=== PATIENT | female | born 1945 | race Caucasian/White ===

== ENCOUNTER 2019-12-03 13:48 | Outpatient (REF) | payer MEDICARE, BC, SELFPAY ==
--- NOTE | 2019-12-03 | MM_ITS ---
EXAMINATION: BONE DENSITOMETRY CLINICAL INDICATION: Other specified disorders of bone density and structure, multiple sites. COMPARISON: Previous BD dated 05/03/2017 and baseline BD dated 08/19/2008. TECHNIQUE: Using a Commissioner DXA System (software version: 13.1) manufactured by [employer], dual-energy x-ray absorptiometry was performed of the lumbar spine and left hip. The images are of good technical quality. Summary results are attached. FINDINGS: AP SPINE L1-L3 (excluding L4): The data of L1-L4 has been changed to exclude the L4 vertebral body, because vertebral curvature and degenerative changes at this level may cause overestimation of lumbar spine density. Current: BMD 1.014 g/cm2, Z-score 0.2, T-score -1.3, osteopenia, 4.7% decrease from previous, 6.5% decrease from baseline (<5% change is not significant). Prior: BMD 1.064 g/cm2. Baseline: BMD 1.084 g/cm2. LEFT FEMUR, NECK: Current: BMD 0.796 g/cm2, Z-score 0.0, T-score -1.7, osteopenia. Prior: BMD 0.876 g/cm2. Baseline: BMD 0.910 g/cm2. LEFT FEMUR, TOTAL: Current: BMD 0.921 g/cm2, Z-score 0.9, T-score -0.7, normal, 8.6% decrease from previous, 5.3% decrease from baseline (<5% change is not significant). Prior: BMD 1.008 g/cm2. Baseline: BMD 0.973 g/cm2. IDENTIFIED RISK FACTORS: History of adult fracture. Hysterectomy. Bilateral oophorectomy. Menopause. HISTORY OF FRACTURE: Forearm. No insufficiency fracture reported. MEDICATIONS: Vitamin D. IMPRESSION: 1. DIAGNOSIS: Osteopenia based on the lowest T-score value of -1.7 in the femoral neck applying World Health Organization criteria. 2. 10-YEAR FRACTURE RISK PREDICTION, FRAX: Major osteoporotic fracture (clinical spine, forearm, hip or shoulder) 17.6%. Hip fracture 3.6%. 3. Treatment Recommendations: NOF guidelines recommend consideration for treatment in postmenopausal women and men age 50 and older presenting with the following: -A hip or vertebral (clinical or morphometric) fracture. -T-score less than or equal to -2.5 at the femoral neck or spine after appropriate evaluation to exclude secondary causes. -Low bone mass at the hip or spine and a 10-year fracture probability by FRAX of greater than or equal to 3% for hip fracture or greater than or equal to 20% for major osteoporotic fracture based on the [place] adapted WHO algorithm. 4. Other Recommendations: All treatment decisions require clinical judgment and consideration of individual patient factors, including patient preferences, comorbidities, previous drug use, risk factors not captured in the FRAX model (e.g. frailty, falls, vitamin D deficiency, increased bone turnover, interval significant decline in bone density) and possible under or overestimation of fracture risk by FRAX. Additional medical evaluation for secondary cause of low bone mineral density may be appropriate. FUTURE SCAN RECOMMENDATION: People with diagnosed cases of osteoporosis or at high risk for fracture should have regular bone mineral density tests. For patients eligible for Medicare, routine testing is allowed once every 2 years. The testing frequency can be increased to one year for patients who have rapidly progressing disease, those who are receiving or discontinuing medical therapy to restore bone mass, or have additional risk factors.
--- NOTE | 2019-12-03 | MM_ITS ---
EXAMINATION: MM SCREENING DIGITAL BREAST TOMOSYNTHESIS, BILATERAL CLINICAL INFORMATION: Screening. Asymptomatic. The lifetime risk of breast cancer based on the Tyrer-Cuzick Model is 8.2%. COMPARISON: Mammography: November 27, 2018 and studies dating back to March 27, 2011 TECHNIQUE: Digital breast tomosynthesis is performed in both the craniocaudal and mediolateral oblique views along with computer-aided detection (CAD). Synthesized 2D images are generated from the tomosynthesis. FINDINGS: The breasts are almost entirely fatty (ACR BI-RADS breast composition Category a). There are no significant masses, abnormal calcifications, or other abnormalities. IMPRESSION: There are no significant changes from prior study. ASSESSMENT: BI-RADS 1: Negative RECOMMENDATION: Routine annual mammography screening. This patient's information was entered into a reminder system with a target due date for their next mammogram.
== END 2019-12-03 13:49 | disposition home or self-care (01) ==
LOC: HO.MAMMO 13:48
PROVIDERS: PCP Internal Medicine; Visit Provider Internal Medicine
DX: Z12.31 Encounter for screening mammogram for malignant neoplasm of breast (principal); M85.89 Other specified disorders of bone density and structure, multiple sites; Z78.0 Asymptomatic menopausal state; Z90.710 Acquired absence of both cervix and uterus; Z90.722 Acquired absence of ovaries, bilateral
CPT/HCPCS: 77063; 77067; 77080

== ENCOUNTER → 2019-12-17 07:37 | Outpatient (BNVA) | payer MEDICARE, BC, SELFPAY | PROVIDERS: PCP Internal Medicine; Referring Provider Internal Medicine; Visit Provider Internal Medicine Endocrinology, Diabetes & Metabolism | DX: Z13.89 Encounter for screening for other disorder (principal) | CPT/HCPCS: 99212 ==

== ENCOUNTER 2019-12-17 08:26 | Outpatient (REF) | payer MEDICARE, BC, SELFPAY ==
[2019-12-17 10:12] LABS: MANUAL DIFF FLAG NO
[2019-12-17 10:33] LABS: Basophils Absolute Auto 0.1 X10*3/uL (0.0-0.2); Basophils Percent Auto 0.9 % (0-2); Eosinophils Absolute Auto 0.1 X10*3/uL (0.0-0.4); Eosinophils Percent Auto 2.2 % (0-4); Hematocrit 41.2 % (37-47); Hemoglobin 13.4 g/dl (12.0-16.0); Imm Gran Abs Auto 0.02 X10*3/uL (0.00-0.03); Imm Gran Pct Auto 0.3 % (0.0-0.4); Lymphocytes Absolute Auto 2.3 X10*3/uL (1.2-4.9); Lymphocytes Percent Auto 35.5 % (20-40); Mean Corpuscular HGB Conc 32.5 g/dl (31.0-35.0); Mean Corpuscular Hemoglobin 30.1 pg (27.0-33.0); Mean Corpuscular Volume 92.6 fL (80-98); Mean Platelet Volume 10.4 fL (9.4-12.3); Monocytes Absolute Auto 0.7 X10*3/uL (0.1-1.2); Monocytes Percent Auto 11.3 % (2-11); Neutrophils Absolute Auto 3.2 X10*3/uL (2.0-8.3); Neutrophils Percent Auto 49.8 % (45-73); Platelet Count 225 X10*3/uL (160-400); Red Blood Count 4.45 X10*6/uL (4.20-5.50); Red Cell Distribution Width 13.8 % (11.0-16.0); White Blood Count 6.4 X10*3/uL (4.8-10.8)
[2019-12-17 10:55] LABS: Alanine Aminotransferase 19 U/L (0-31); Albumin Level 4.2 g/dL (3.5-5.0); Alkaline Phosphatase 66 U/L (39-117); Anion Gap 13 (12-20); Aspartate Amino Transferase 23 U/L (5-31); Bilirubin Total 0.8 mg/dL (0.0-1.0); Blood Urea Nitrogen 16 mg/dL (9-16); Calcium 8.9 mg/dL (8.4-10.2); Carbon Dioxide 28 mmol/L (22-29); Chloride 102 mmol/L (96-108); Cholesterol 239 mg/dL; Estimated Glomerular Filt Rate > 60; Glucose Fasting 92 mg/dL (60-99); HDL Cholesterol 96 mg/dL; LDL Cholesterol Calculated 132 mg/dl; Potassium 4.2 mmol/l (3.3-5.1); Sodium 139 mmol/L (135-145); Total Protein 6.7 g/dL (6.5-8.0); Triglycerides 55 mg/dL
[2019-12-17 11:16] LABS: Vitamin D 25-OH Total 42.7 ng/mL (>30)
== END 2019-12-17 08:27 | disposition home or self-care (01) ==
LOC: HO.10HDL 08:26
PROVIDERS: Internal Medicine; Visit Provider Internal Medicine Endocrinology, Diabetes & Metabolism
DX: M85.80 Other specified disorders of bone density and structure, unspecified site (principal); I10 Essential (primary) hypertension; E78.00 Pure hypercholesterolemia, unspecified; E55.9 Vitamin D deficiency, unspecified; Z76.89 Persons encountering health services in other specified circumstances
CPT/HCPCS: 36415; 80053; 80061; 82306; 85025; 99212

== ENCOUNTER 2020-12-19 10:32 | Outpatient (REF) | payer MEDICARE, BC, SELFPAY ==
--- NOTE | ~2020-12-19 | MM_ITS ---
EXAMINATION: MM SCREENING DIGITAL BREAST TOMOSYNTHESIS, BILATERAL CLINICAL INFORMATION: Screening. Asymptomatic. History benign left excisional biopsy, 1998. The lifetime risk of breast cancer based on the Tyrer-Cuzick Model is 6%. COMPARISON: Mammography: 12/03/2019, 11/27/2018, 11/13/2017 TECHNIQUE: Digital breast tomosynthesis is performed in both the craniocaudal and mediolateral oblique views along with computer-aided detection (CAD). Synthesized 2D images are generated from the tomosynthesis. FINDINGS: There are scattered areas of fibroglandular density (ACR BI-RADS breast composition Category b). There are no significant masses, abnormal calcifications, or other abnormalities. There are some grouped ductal secretory calcifications again seen mid 9:00 right breast as well as benign grouped coarse calcifications subdermal anterior right breast as before. The axilla and skin contours are unremarkable. MM/MM tomosynthesis screening BI IMPRESSION: No mammographic evidence of malignancy. ASSESSMENT: BI-RADS 2: Benign RECOMMENDATION: Routine annual mammography screening. This patient's information was entered into a reminder system with a target due date for their next mammogram.
== END 2020-12-19 10:33 | disposition home or self-care (01) ==
LOC: HO.MAMMO 10:32
PROVIDERS: Visit Provider Internal Medicine
DX: Z12.31 Encounter for screening mammogram for malignant neoplasm of breast (principal)
CPT/HCPCS: 77063; 77067

== ENCOUNTER 2021-04-17 08:12 | Outpatient (REF) | payer MEDICARE, BC, SELFPAY ==
[2021-04-17 08:41] LABS: MANUAL DIFF FLAG NO
[2021-04-17 08:56] LABS: Basophils Percent Auto 0.8 % (0-2); Eosinophils Absolute Auto 0.1 X10*3/uL (0.0-0.4); Eosinophils Percent Auto 1.7 % (0-4); Hematocrit 42.1 % (37.0-47.0); Hemoglobin 13.7 g/dl (12.0-16.0); Imm Gran Abs Auto 0.02 X10*3/uL (0.00-0.03); Imm Gran Pct Auto 0.4 % (0.0-0.4); Lymphocytes Absolute Auto 1.6 X10*3/uL (1.2-4.9); Lymphocytes Percent Auto 33.7 % (20-40); Mean Corpuscular HGB Conc 32.5 g/dl (31.0-35.0); Mean Corpuscular Hemoglobin 30.7 pg (27.0-33.0); Mean Corpuscular Volume 94.4 fL (80.0-98.0); Mean Platelet Volume 10.3 fL (9.4-12.3); Monocytes Absolute Auto 0.7 X10*3/uL (0.1-1.2); Monocytes Percent Auto 14.9 % (2-11); Neutrophils Absolute Auto 2.3 x10*3/uL (2.0-8.3); Neutrophils Percent Auto 48.5 % (45-73); Platelet Count 184 X10*3/uL (160-400); Red Blood Count 4.46 X10*6/uL (4.20-5.50); Red Cell Distribution Width 13.6 % (11.0-16.0); White Blood Count 4.8 X10*3/uL (4.8-10.8)
[2021-04-17 09:23] LABS: Alanine Aminotransferase 21 U/L (0-31); Albumin Level 4.1 g/dL (3.5-5.0); Alkaline Phosphatase 66 U/L (39-117); Anion Gap 11 (12-20); Aspartate Amino Transferase 26 U/L (5-31); Bilirubin Total 0.8 mg/dL (0.0-1.0); Blood Urea Nitrogen 11 mg/dL (9-16); Calcium 9.4 mg/dL (8.4-10.2); Carbon Dioxide 28 mmol/L (22-29); Chloride 105 mmol/L (96-108); Cholesterol 240 mg/dL; Estimated Glomerular Filt Rate > 60; Glucose Random 94 mg/dL (60-115); HDL Cholesterol 78 mg/dL; LDL Cholesterol Calculated 143 mg/dl; Potassium 4.2 mmol/L (3.3-5.1); Sodium 140 mmol/L (135-145); Total Protein 6.7 g/dL (6.5-8.0); Triglycerides 96 mg/dL
[2021-04-17 09:48] LABS: Free T4 (Free Thyroxine) 0.99 ng/dL (0.71-1.85); Thyroid Stimulating Hormone 2.29 uIU/mL (0.32-4.0); Vitamin D 25-OH Total 50.6 ng/mL (>30)
[2021-04-17 09:56] LABS: Folate 17.1 ng/mL (> or = 4.0); Vitamin B12 533 pg/mL (200-900)
== END 2021-04-17 08:13 | disposition home or self-care (01) ==
LOC: HO.LAB 08:12
PROVIDERS: PCP Internal Medicine; Visit Provider Internal Medicine
DX: M85.80 Other specified disorders of bone density and structure, unspecified site (principal); E78.00 Pure hypercholesterolemia, unspecified; I10 Essential (primary) hypertension
CPT/HCPCS: 36415; 80053; 80061; 82306; 82607; 82746; 84439; 84443; 85025

== ENCOUNTER 2021-05-08 11:50 | Outpatient (REF) | payer MEDICARE, BC, SELFPAY ==
--- NOTE | ~2021-05-08 | XR_ITS ---
EXAMINATION: XR CHEST CLINICAL INFORMATION: Shortness of breath. COMPARISON: Chest 12/20/2015. TECHNIQUE: 2 views of the chest were obtained. FINDINGS: No significant abnormality is noted involving the heart, lungs, mediastinum, bony thorax or soft tissues. XR/XR chest 2V IMPRESSION: Unremarkable chest examination.
--- NOTE | 2021-05-08 11:55 | ECG_ITS ---
Test Reason : SOB Blood Pressure : / mmHG Vent. Rate : 061 BPM Atrial Rate : 061 BPM P-R Int : 180 ms QRS Dur : 092 ms QT Int : 404 ms P-R-T Axes : 063 -15 049 degrees QTc Int : 406 ms Normal sinus rhythm Incomplete right bundle branch block Borderline ECG No previous ECGs available Referred By: Cynthia James Electronically Signed By:Tate Leo
== END 2021-05-08 11:51 | disposition home or self-care (01) ==
LOC: HO.XRAY 11:50
PROVIDERS: PCP Internal Medicine; Visit Provider Internal Medicine
DX: R06.02 Shortness of breath (principal)
CPT/HCPCS: 71046; 93005

== ENCOUNTER → 2021-05-10 10:16 | Outpatient (REF) | payer MEDICARE, BC, SELFPAY ==
--- NOTE | 2021-05-10 10:19 | CA_ITS ---
Acquisition Time: 2021-05-10 10:52:54 Total Exercise Time: 00:06:00 Test Indications: Dyspnea Medications: VIT D EPIPEN Protocol: DEMARIO Max HR: 153 BPM 105% of Pred: 145 BPM Max BP: 162/078 mmHG Max Work Load: 7.0 METS Exercise stress test with exercise 6 min of Demario protocol, acheiving 90% MPHR, 6.9 METs, with mild sob, no chest discomfort, with isolated PACs, short runs of atrial tachycardia with longest 8 beats, isolated PVCs and 2 multifocal ventricular cuplets, with normotensive response to exercise, without EKG changes meeting criteria for ischemia. Test reviewed with Dr Leo. Referred By: Cynthia James Overread By: STONE FROST
== END ==
LOC: HO.CARD 10:16
PROVIDERS: PCP Internal Medicine; Visit Provider Internal Medicine
DX: R06.02 Shortness of breath (principal)
CPT/HCPCS: 93017

== ENCOUNTER 2021-07-03 08:21 | Day surgery (SDC) | payer MEDICARE, BC, SELFPAY ==
[2021-06-27 15:46] VITALS: BMI 28.3
--- NOTE | 2021-06-30 10:56 | HO.ANESPROP2 ---
Documented by User: Jeanine Yun NP 06/30/21 12:17 HPI - Anesthesia Eval Consult details Narrative: 75yo F for Colonoscopy with antibiotics Per message from Dr James (PCP) Reviewed blood work and ekg and stress test with no significant abnormalities. May proceed with contemplated procedure. PMFSH Active Problems Active Problems: All Active Problems (Updated 04/18/21 @ 12:31 by Cynthia James MD) Colon cancer screening (Acute) Breast cancer screening by mammogram (Acute) Pre-op evaluation (Acute) Medicare annual wellness visit, initial (Acute) Shortness of breath on exertion (Acute) Impacted cerumen of both ears (Acute) History of arthroplasty of right knee (Acute) Cystocele with prolapse (Acute) Hypercholesterolemia (Acute) Vitamin D deficiency (Acute) Osteopenia (Acute) Past Medical History Medical History (Updated 04/18/21 @ 12:31 by Cynthia James MD) Breast nodule Hypercholesterolemia Lipid disorder Osteopenia Vitamin D deficiency Family History Family History (Updated 01/03/21 @ 11:05 by EVER Harry) Father Myocardial infarction Mother Diabetes Breast cancer Surgical History Surgical History (Updated 06/27/21 @ 15:45 by Na Zavala RN) Cystocele with prolapse H/O colonoscopy History of arthroplasty of right knee History of open reduction and internal fixation (ORIF) procedure Hx of inguinal herniorrhaphy Social History Social History (Updated 04/18/21 @ 12:11 by Cynthia James MD) Housing: House Alcohol intake: current Alcohol intake frequency: holidays/special occasions only Patient Tobacco Use Status: Never used Tobacco e-Cigarette/Vaping Use: Never Used Second Hand Smoke Exposure: No Use of substances other than those prescribed or required for medical reasons: No Are you DNR?: No Advance Directives: No Advance Directives Information Provided: Yes service: No Current occupational status: retired Cognitive needs: No Vision needs: Yes (Glasses) Meds Allergies Allergy/AdvReac Type Severity Reaction Status Date / Time penicillin V Allergy Unknown throat/tongue Verified 07/03/21 08:33 swells tree nut Allergy Unknown throat/tongue Verified 07/03/21 08:33 swells Home Medications Medication Instructions Recorded Confirmed Last Taken Type cholecalciferol (vitamin D3) 25 25 mcg PO DAILY 12/17/19 06/27/21 Unknown History mcg (1,000 unit) capsule multivitamin 1 tab PO DAILY 12/09/20 06/27/21 Unknown History Exam Exam Date and Time: June 30, 2021 1056 Height,Weight and Vital Signs: Height 5 ft 3 in Weight 72.575 kg Pertinent Lab Results Pertinent Lab Results: Laboratory Tests 04/17/21 04/17/21 08:40 08:40 WBC 4.8 Hgb 13.7 Hct 42.1 Plt Count 184 Sodium 140 Potassium 4.2 Chloride 105 Carbon Dioxide 28 BUN 11 Creatinine 0.79 Narrative Narrative: EKG 04/2021 Vent. Rate : 061 BPM ? ? Atrial Rate : 061 BPM ?? P-R Int : 180 ms? QRS Dur : 092 ms ? ? QT Int : 404 ms ? ? ? P-R-T Axes : 063 -15 049 degrees ?? QTc Int : 406 ms ? Normal sinus rhythm Incomplete right bundle branch block Borderline ECG No previous ECGs available Exercist Stress 04/2021 Protocol: DANE ? Max HR: 153 BPM? 105% of? Pred: 145 BPM Max BP: 162/078 mmHG Max Work Load: 7.0 METS ? Exercise stress test with exercise 6 min of Dane protocol, acheiving 90% MPHR, 6.9 METs, with mild sob, no chest discomfort, with isolated PACs, short runs of atrial tachycardia with longest 8 beats, isolated PVCs and 2 multifocal ?ventricular cuplets, with normotensive response to exercise, without EKG ?changes meeting criteria for ischemia. Test reviewed with Dr Leo. Assessment and Plan Assessment Anesthesia Assessment: Chart Reviewed Documented by User: Dwayne Freedman MD 07/03/21 16:56 [facility] Past Medical History Medical History (Updated 04/18/21 @ 12:31 by Cynthia James MD) Breast nodule Hypercholesterolemia Lipid disorder Osteopenia Vitamin D deficiency Functional capacity: independent ambulation Family History Family History (Updated 01/03/21 @ 11:05 by EVER Harry) Father Myocardial infarction Mother Diabetes Breast cancer Family history of problems with anesthesia: No Surgical History Surgical History (Updated 06/27/21 @ 15:45 by Na Zavala RN) Cystocele with prolapse H/O colonoscopy History of arthroplasty of right knee History of open reduction and internal fixation (ORIF) procedure Hx of inguinal herniorrhaphy History of Problems with Anesthesia: No Social History Social History (Updated 04/18/21 @ 12:11 by Cynthia James MD) Housing: House Alcohol intake: current Alcohol intake frequency: holidays/special occasions only Patient Tobacco Use Status: Never used Tobacco e-Cigarette/Vaping Use: Never Used Second Hand Smoke Exposure: No Use of substances other than those prescribed or required for medical reasons: No Are you DNR?: No Advance Directives: No Advance Directives Information Provided: Yes service: No Current occupational status: retired Cognitive needs: No Vision needs: Yes (Glasses) Meds Allergies Allergy/AdvReac Type Severity Reaction Status Date / Time penicillin V Allergy Unknown throat/tongue Verified 07/03/21 08:33 swells tree nut Allergy Unknown throat/tongue Verified 07/03/21 08:33 swells Home Medications Medication Instructions Recorded Confirmed Last Taken Type cholecalciferol (vitamin D3) 25 25 mcg PO DAILY 12/17/19 06/27/21 Unknown History mcg (1,000 unit) capsule multivitamin 1 tab PO DAILY 12/09/20 06/27/21 Unknown History Exam Airway Mallampati Class: III TM Dist: >3cm Neck ROM: Full Loose/Missing/Broken Teeth: Yes (Crowns) Heart: S1, S2 Lungs: b/l breath sounds Assessment and Plan Assessment Anesthesia Assessment: Anesthesia Plan Discussed Final Anesthetic Review Family History of Problems with Anesthesia: No History of Problems with Anesthesia: No NPO: Yes ASA Class: II Final Preanesthetic Review: Meds/Allgs Chart Reviewed, Consent Obtained/Reviewed and Anes Risks/Benef Reviewed Patient Risk: Intermediate Procedure Risk: Intermediate Anesthetic Plan Anesthetic Plan: MAC: Disposition: Standard PACU
[2021-07-03 08:33] VITALS: BMI 28.3
[2021-07-03 08:41] VITALS: BP 143/64; PULSE 60; RESP 16; TEMP 37.1; O2SAT 98
[2021-07-03] MEDS: Gentamicin Sulfate/NaCl 80 MG/100 ML PIGGYBACK 100 MG IV (08:59)
[2021-07-03] MEDS: Lactated Ringers 1,000 ML 100 ML IVCONT (09:00)
[2021-07-03] MEDS: vancomycin HCL 1,000 MG in 0.9 % Sodium Chloride 250 ML 270 MG IV (09:11)
[2021-07-03 10:42] VITALS: BP 106/45; PULSE 66; RESP 16; TEMP 36.4; O2SAT 97
--- NOTE | 2021-07-03 10:54 | P.BOP_ITS ---
Brief Operative Note Date of Service: 07/03/21 Pre-op diagnosis: Screening Post-op diagnosis: other (Diverticulosis) Procedure: Colonoscopy to the cecum and TI Surgeon: Deandre Garnica Anesthesia: MAC Was an Fisher Troll Line used for this Procedure?: No Estimated blood loss (mL): 0 Pathology: none sent Condition: stable Disposition: PACU
[2021-07-03 10:57] VITALS: BP 105/56; PULSE 54; RESP 18; O2SAT 97
[2021-07-03 11:12] VITALS: BP 139/56; PULSE 65; RESP 18; TEMP 36.7; O2SAT 98
--- NOTE | 2021-07-03 21:02 | OP_ITS ---
SURGEON: Deandre Garnica MD INDICATIONS: The patient presents for evaluation of colorectal cancer screening. Full consent was obtained from her for this, including risks of bleeding and perforation. PREOPERATIVE DIAGNOSIS: Colorectal cancer screening. POSTOPERATIVE DIAGNOSIS: PROCEDURE PERFORMED: Colonoscopy to the cecum and terminal ileum. ESTIMATED BLOOD LOSS: COMPLICATIONS: ANESTHESIA: Monitored anesthesia care. ASSISTANTS: SPECIMENS: POSTOPERATIVE DIAGNOSES: Colorectal cancer screening, diverticulosis and internal hemorrhoids. DESCRIPTION OF PROCEDURE: The patient was placed in the left lateral decubitus position. The digital rectal exam revealed no abnormalities. The Olympus video pediatric colonoscope was entered into the rectum and advanced easily to the cecum. Once in the cecum, I did identify normal-appearing cecal pouch with appendiceal orifice and a normal-appearing ileocecal valve. The terminal ileum was cannulated and appeared normal. Scope was withdrawn back into the colon. The entire cecum and ileocecal valve appeared normal. The scope was slowly withdrawn assessing all mucosal surfaces carefully. Preparation was excellent. I did not visualize any sign of polyps, colitis, nor angiodysplasia. There was a mild amount of sigmoid diverticulosis. In the rectum, scope was retroflexed visualizing small internal hemorrhoids, but no other pathology. The rectal mucosa appeared normal. The scope was straightened and withdrawn from the patient. She tolerated the procedure well and was returned to the recovery area in stable condition. IMPRESSION: 1. Diverticulosis. 2. Internal hemorrhoids. PLAN: Given the negative exam and her age, I do not think she will need any further screening colonoscopies. She did receive preprocedure antibiotics in regard to the recent knee replacement. She will otherwise see me on a p.r.n. basis. MD REGINALD Berman/HECTORL / [phone] MTDD
== END 2021-07-03 11:40 | disposition home or self-care (01) ==
PROVIDERS: PCP Internal Medicine; Visit Provider Internal Medicine
PROC: 0DJD8ZZ Inspection of Lower Intestinal Tract, Via Natural or Artificial Opening Endoscopic (ICD-10-PCS; CPT 45378; principal; 2021-07-03 09:20)
DX: Z12.11 Encounter for screening for malignant neoplasm of colon (principal); K57.30 Diverticulosis of large intestine without perforation or abscess without bleeding; K64.8 Other hemorrhoids; M81.0 Age-related osteoporosis without current pathological fracture; E55.9 Vitamin D deficiency, unspecified; Z79.899 Other long term (current) drug therapy; Z79.2 Long term (current) use of antibiotics; Z88.0 Allergy status to penicillin; Z96.651 Presence of right artificial knee joint
CPT/HCPCS: G0121; J1580; J3370

== ENCOUNTER 2022-01-30 12:52 | Outpatient (REF) | payer MEDICARE, BC, SELFPAY ==
--- NOTE | ~2022-01-30 | MM_ITS ---
EXAMINATION: MM SCREENING DIGITAL BREAST TOMOSYNTHESIS, BILATERAL CLINICAL INFORMATION: Screening. Asymptomatic. The lifetime risk of breast cancer based on the Tyrer-Cuzick Model is 5.8%. COMPARISON: Mammography: December 19, 2020 and studies dating back to October 05, 2015 TECHNIQUE: Digital breast tomosynthesis is performed in both the craniocaudal and mediolateral oblique views along with computer-aided detection (CAD). Synthesized 2D images are generated from the tomosynthesis. FINDINGS: The breasts are almost entirely fatty (ACR BI-RADS breast composition Category a). There are no significant masses, abnormal calcifications, or other abnormalities. MM/MM tomosynthesis screening BI IMPRESSION: No significant changes from prior exam. ASSESSMENT: BI-RADS 1: Negative RECOMMENDATION: Routine annual mammography screening. This patient's information was entered into a reminder system with a target due date for their next mammogram.
--- NOTE | ~2022-01-30 | MM_ITS ---
EXAMINATION: BONE DENSITOMETRY CLINICAL INDICATION: Age-related osteoporosis without current pathological fracture. COMPARISON: Previous BD dated 12/03/2019 and baseline BD dated 08/19/2008. TECHNIQUE: Using a [employer] DXA System (software version: 13.1) manufactured by [employer], dual-energy x-ray absorptiometry was performed of the lumbar spine and left hip. The images are of good technical quality. Summary results are attached. FINDINGS: AP SPINE L1-L4: Current: BMD 1.142 g/cm2, Z-score 1.2, T-score -0.3, normal, 7.4% increase from previous, 1.8% increase from baseline (<5% change is not significant). Prior: BMD 1.063 g/cm2. Baseline: BMD 1.122 g/cm2. LEFT FEMUR, NECK: Current: BMD 0.817 g/cm2, Z-score 0.2, T-score -1.6, osteopenia. Prior: BMD 0.796 g/cm2. Baseline: BMD 0.910 g/cm2. LEFT FEMUR, TOTAL: Current: BMD 0.905 g/cm2, Z-score 0.8, T-score -0.8, normal, 1.7% decrease from previous, 7.0% decrease from baseline (<5% change is not significant). Prior: BMD 0.921 g/cm2. Baseline: BMD 0.973 g/cm2. IDENTIFIED RISK FACTORS: Bilateral oophorectomy, history of fracture (adult), hysterectomy, menopause. HISTORY OF FRACTURE: Forearm/trauma. MEDICATIONS: Calcium, vitamin D. MM/XR DEXA axial skeleton IMPRESSION: 1. DIAGNOSIS: Osteopenia based on the lowest T-score value of -1.6 in the femoral neck applying World Health Organization criteria. 2. 10-YEAR FRACTURE RISK PREDICTION, FRAX: Major osteoporotic fracture (clinical spine, forearm, hip or shoulder) 17.8%. Hip fracture 3.6%. 3. Treatment Recommendations: NOF guidelines recommend consideration for treatment in postmenopausal women and men age 50 and older presenting with the following: -A hip or vertebral (clinical or morphometric) fracture. -T-score less than or equal to -2.5 at the femoral neck or spine after appropriate evaluation to exclude secondary causes. -Low bone mass at the hip or spine and a 10-year fracture probability by FRAX of greater than or equal to 3% for hip fracture or greater than or equal to 20% for major osteoporotic fracture based on the [place] adapted WHO algorithm. 4. Other Recommendations: All treatment decisions require clinical judgment and consideration of individual patient factors, including patient preferences, comorbidities, previous drug use, risk factors not captured in the FRAX model (e.g. frailty, falls, vitamin D deficiency, increased bone turnover, interval significant decline in bone density) and possible under or overestimation of fracture risk by FRAX. Additional medical evaluation for secondary cause of low bone mineral density may be appropriate. FUTURE SCAN RECOMMENDATION: People with diagnosed cases of osteoporosis or at high risk for fracture should have regular bone mineral density tests. For patients eligible for Medicare, routine testing is allowed once every 2 years. The testing frequency can be increased to one year for patients who have rapidly progressing disease, those who are receiving or discontinuing medical therapy to restore bone mass, or have additional risk factors.
== END 2022-01-30 12:53 | disposition home or self-care (01) ==
LOC: HO.MAMMO 12:52
PROVIDERS: PCP Internal Medicine; Visit Provider Internal Medicine
DX: Z12.31 Encounter for screening mammogram for malignant neoplasm of breast (principal); Z13.820 Encounter for screening for osteoporosis; M81.0 Age-related osteoporosis without current pathological fracture; M85.80 Other specified disorders of bone density and structure, unspecified site; Z78.0 Asymptomatic menopausal state
CPT/HCPCS: 77063; 77067; 77080

== ENCOUNTER 2022-04-11 09:03 | Outpatient (REF) | payer MEDICARE, BC, SELFPAY ==
[2022-04-11 09:30] LABS: MANUAL DIFF FLAG NO
[2022-04-11 10:01] LABS: Basophils Absolute Auto 0.1 X10*3/uL (0.0-0.2); Basophils Percent Auto 0.6 % (0-2); Eosinophils Absolute Auto 0.1 X10*3/uL (0.0-0.4); Eosinophils Percent Auto 1.3 % (0-4); Hematocrit 42.6 % (37.0-47.0); Hemoglobin 14.1 g/dl (12.0-16.0); Imm Gran Abs Auto 0.13 X10*3/uL (0.00-0.03); Imm Gran Pct Auto 1.6 % (0.0-0.4); Lymphocytes Absolute Auto 1.8 X10*3/uL (1.2-4.9); Mean Corpuscular HGB Conc 33.1 g/dl (31.0-35.0); Mean Corpuscular Hemoglobin 30.9 pg (27.0-33.0); Mean Corpuscular Volume 93.4 fL (80.0-98.0); Mean Platelet Volume 10.5 fL (9.4-12.3); Monocytes Percent Auto 11.9 % (2-11); Neutrophils Absolute Auto 5.2 x10*3/uL (2.0-8.3); Neutrophils Percent Auto 62.6 % (45-73); Platelet Count 245 X10*3/uL (160-400); Red Blood Count 4.56 X10*6/uL (4.20-5.50); Red Cell Distribution Width 13.4 % (11.0-16.0); White Blood Count 8.3 X10*3/uL (4.8-10.8)
[2022-04-11 10:43] LABS: Alanine Aminotransferase 18 U/L (0-31); Alkaline Phosphatase 78 U/L (39-117); Anion Gap 13 (12-20); Aspartate Amino Transferase 22 U/L (5-31); Bilirubin Total 0.8 mg/dL (0.0-1.0); Blood Urea Nitrogen 13 mg/dL (9-16); Calcium 9.2 mg/dL (8.4-10.2); Carbon Dioxide 28 mmol/L (22-29); Chloride 103 mmol/L (96-108); Cholesterol 235 mg/dL; Estimated Glomerular Filt Rate > 60; Glucose Random 90 mg/dL (60-115); HDL Cholesterol 70 mg/dL; LDL Cholesterol Calculated 149 mg/dl; Potassium 4.2 mmol/L (3.3-5.1); Sodium 140 mmol/L (135-145); Triglycerides 83 mg/dL
[2022-04-11 11:14] LABS: Folate 16.1 ng/mL (> or = 4.0); Free T4 (Free Thyroxine) 0.93 ng/dL (0.71-1.85); Thyroid Stimulating Hormone 1.85 uIU/mL (0.32-4.0); Vitamin B12 831 pg/mL (200-900); Vitamin D 25-OH Total 43.1 ng/mL (>30)
== END 2022-04-11 09:04 | disposition home or self-care (01) ==
LOC: HO.LAB 09:03
PROVIDERS: PCP Internal Medicine; Visit Provider Internal Medicine
DX: E78.00 Pure hypercholesterolemia, unspecified (principal); M85.80 Other specified disorders of bone density and structure, unspecified site; E55.9 Vitamin D deficiency, unspecified
CPT/HCPCS: 36415; 80053; 80061; 82306; 82607; 82746; 84439; 84443; 85025

== ENCOUNTER 2022-10-15 10:59 | Outpatient (AMB) | payer MEDICARE, BC, SELFPAY ==
--- NOTE | 2022-10-15 11:03 | A.OFFPC_ITS ---
Vital Signs 10/15/22 11:04 Height 5 ft 3 in Weight 164 lb BMI 29.0 BP 128/68 Blood Pressure Location Lt brachial Position Sitting Pulse 71 Pulse Source Pulse Oximeter Pulse Oximetry (%) 97 Oxygen Delivery Method Room Air Intake Visit Reasons: Blood pressure high, hypercholesterol Allergies penicillin V Allergy (Unknown, Verified 10/15/22 11:04) throat/tongue swells tree nut Allergy (Unknown, Verified 10/15/22 11:04) throat/tongue swells Tobacco use date assessed: 04/16/22 Fall risk assessment: No Falls in past year Last assessed Fall Risk: 10/15/22 Dental Screening Dental Screen Date: 10/15/22 Did you have a dental visit in the last 12 months?: Yes Did you have a dental problem in the last 6 months where you did not have access to dental care?: No Was dental information given to patient?: Patient has dentist HPI Blood pressure high, hypercholesterol HPI Details 77-year-old female with history of hypercholesterol and osteopenia last seen in March 2022. Patient is up-to-date with colonoscopy mammogram and bone density. Last time seen concern about the blood pressure being elevated but on follow-up in March blood pressure came down. March 2022 last blood work. Blood pressure monitor normal /controlled and is reminded about the pneumonia shot. Will be going in November 19 [place] for work advised patient to get the flu shot 2 weeks before. Discussed about the high cholesterol patient understands and is eating better. [facility] Medical History (Updated 10/15/22 @ 11:09 by Cynthia James MD) Blood pressure elevated without history of HTN Breast cancer screening by mammogram Breast nodule Colon cancer screening Hypercholesterolemia Impacted cerumen of both ears Lipid disorder Medicare annual wellness visit, initial Osteopenia Osteopenia Pre-op evaluation Shingles Shortness of breath on exertion Vitamin D deficiency Surgical History (Updated 10/15/22 @ 11:08 by Cynthia James MD) Cystocele with prolapse H/O colonoscopy History of arthroplasty of right knee History of open reduction and internal fixation (ORIF) procedure Hx of inguinal herniorrhaphy Family History (Updated 01/03/21 @ 11:05 by EVER Harry) Father Myocardial infarction Mother Diabetes Breast cancer Social History (Updated 04/18/21 @ 12:11 by Cynthia James MD) Housing: House Alcohol intake: current Alcohol intake frequency: holidays/special occasions only Patient Tobacco Use Status: Never used Tobacco e-Cigarette/Vaping Use: Never Used Second Hand Smoke Exposure: No service: No Current occupational status: retired Cognitive needs: No Hearing needs: No Vision needs: Yes (Glasses) Questionnaire PHQ-9 Over the last 2 weeks, how often have you been bothered by any of the following problems? 1. Little interest or pleasure in doing things: not at all 2. Feeling down, depressed, or hopeless: not at all 3. Trouble falling or staying asleep, or sleeping too much: not at all 4. Feeling tired or having little energy: not at all 5. Poor appetite or overeating: not at all 6. Feeling bad about yourself - or that you are a failure or have let yourself or your family down: not at all 7. Trouble concentrating on things, such as reading the newspaper or watching television: not at all 8. Moving or speaking so slowly that other people could have noticed. Or the opposite - being so fidgety or restless that you have been moving around a lot more than usual: not at all 9. Thoughts that you would be better off or of hurting yourself in some way: not at all Total score: 0 Depression Screening Interpretation: Negative Source: Developed by Drs. Deandre Richter, Oliverio Moy and colleagues, with an educational lorene from [employer]. Thrive Questionnaire Date Thrive assessed: 04/16/22 AUDIT C Alcohol Use Questionnaire (AUDIT-C) 1. How often do you have a drink containing alcohol?: Monthly or less 2. How many drinks containing alcohol do you have on a typical day when you are drinking?: 1 or 2 3. How often do you have six or more drinks on one occasion?: Never Total Score: 1 FAISAL-7 AMB Questionnaire FAISAL-7 Date FAISAL - 7 assessed: 04/16/22 Source: Developed by Drs. Deandre Richter, Oliverio Moy and colleagues, with an educational lorene from [employer]. Physical exam (Primary Care) Vital Signs: Oxygen Delivery Method Room Air 10/15/22 11:04 Tobacco/Smoking Status: Tobacco use Status Tobacco use date assessed 04/16/22 10/15/22 11:05 Patient Tobacco Use Status Never used Tobacco 10/15/22 11:05 e-Cigarette/Vaping Use Never Used 10/15/22 11:05 PHQ-9: PHQ-9 Score PHQ-9: Total score 0 10/15/22 11:05 Depression Screening Interpretation: Negative Thrive Assessment: Date of Thrive Assessment Date Thrive assessed 04/16/22 10/15/22 11:05 Const General: alert; No acute distress Eyes Conjunctivae: conjunctivae normal Resp Auscultation: clear to auscultation bilaterally Cardio Rate: regular rate Rhythm: regular rhythm GI Inspection: Yes normal to inspection Extrem General: Yes normal to inspection and No edema Assessment and Plan Assessment & Plan (1) Osteopenia: Comment: January 2022 Code(s): M85.80 - Other specified disorders of bone density and structure, unspecified site Plan: Patient's bone density is up-to-date (2) Hypercholesterolemia: Code(s): E78.00 - Pure hypercholesterolemia, unspecified Plan: Avoid fried foods, chicken skin, eggs, butter margarine, pastries and meat. Be it pork or beef they have a lot of cholesterol LDL goal of less than 130 and triglyceride of less than 150 patient on diet control (3) History of arthroplasty of right knee: Comment: May 2020 Dr. Abernathy Code(s): Z96.651 - Presence of right artificial knee joint Plan: Keeping active keep well hydrated. Orders: Orders Vitamin B12 and Folate 5 Months E78.00 - Pure hypercholesterolemia, unspecified Comprehensive Met. Panel 5 Months E78.00 - Pure hypercholesterolemia, unspecified Lipid Panel 5 Months E78.00 - Pure hypercholesterolemia, unspecified Free T4 (Free Thyroxine) 5 Months E78.00 - Pure hypercholesterolemia, unspecified Thyroid Stimulating Hormone 5 Months E78.00 - Pure hypercholesterolemia, unspecified Complete Blood Count Auto Diff 5 Months E78.00 - Pure hypercholesterolemia, unspecified Coding Level of Care Code Est Pt Level 4 (26856) Diagnoses Osteopenia M85.80 Hypercholesterolemia E78.00 History of arthroplasty of right knee Z96.651
[2022-10-15 11:04] VITALS: BP 128/68; PULSE 71; O2SAT 97; BMI 29.0
== END 2022-10-15 11:29 | disposition home or self-care (01) ==
PROVIDERS: Visit Provider Internal Medicine
DX: M85.80 Other specified disorders of bone density and structure, unspecified site (principal); E78.00 Pure hypercholesterolemia, unspecified; Z96.651 Presence of right artificial knee joint
CPT/HCPCS: 99214

== ENCOUNTER 2023-02-05 09:33 | Outpatient (REF) | payer MEDICARE, BC, SELFPAY ==
--- NOTE | ~2023-02-05 | MM_ITS ---
EXAMINATION: MM SCREENING DIGITAL BREAST TOMOSYNTHESIS, BILATERAL CLINICAL INFORMATION: Screening. Asymptomatic. COMPARISON: Mammography: This study is compared with prior exams dating back to 2018. TECHNIQUE: Digital breast tomosynthesis is performed in both the craniocaudal and mediolateral oblique views along with computer-aided detection (CAD). Synthesized 2D images are generated from the tomosynthesis. FINDINGS: There are scattered areas of fibroglandular density (ACR BI-RADS breast composition Category b). There are no significant masses, abnormal calcifications, or other abnormalities. There are few, bilateral benign calcifications in each breast. MM/MM tomosynthesis screening BI IMPRESSION: No mammographic evidence of malignancy. ASSESSMENT: BI-RADS BI-RADS 2 - Benign Findings RECOMMENDATION: Routine annual mammography screening. 1 year F/U This examination should not preclude the clinical evaluation of a suspicious palpable abnormality. This patient's information was entered into a reminder system with a target due date for their next mammogram.
== END 2023-02-05 09:34 | disposition home or self-care (01) ==
LOC: HO.MAMMO 09:33
PROVIDERS: PCP Internal Medicine; Visit Provider Internal Medicine
DX: Z12.31 Encounter for screening mammogram for malignant neoplasm of breast (principal)
CPT/HCPCS: 77063; 77067

== ENCOUNTER → 2023-02-05 10:00 | Outpatient (BNV) | payer MEDICARE, BC, SELFPAY | PROVIDERS: PCP Internal Medicine; Visit Provider Radiology Diagnostic Radiology | DX: Z12.31 Encounter for screening mammogram for malignant neoplasm of breast (principal) | CPT/HCPCS: 77063; 77067 ==

== ENCOUNTER 2023-03-25 10:07 | Outpatient (AMB) | payer MEDICARE, BC, SELFPAY ==
[2023-03-25 10:09] VITALS: BP 130/78; PULSE 74; O2SAT 98; BMI 29.4
--- NOTE | 2023-03-25 10:09 | A.OFFVIS_ITS ---
Intake Vital Signs 03/25/23 10:09 Height 5 ft 3 in Weight 75.296 kg BMI 29.4 BP 130/78 Blood Pressure Location Lt brachial Position Sitting Pulse 74 Pulse Source Pulse Oximeter Pulse Oximetry (%) 98 Oxygen Delivery Method Room Air Intake Visit Reasons: KASSY G0439 Allergies penicillin V Allergy (Unknown, Verified 03/25/23 10:09) throat/tongue swells tree nut Allergy (Unknown, Verified 03/25/23 10:09) throat/tongue swells Medication List - Last Reconciled 03/25/23 by Cynthia James MD cholecalciferol (vitamin D3) 25 mcg PO DAILY epinephrine (EpiPen) 0.3 mg IM for anaphylactic shock PRN; for 2 doses multivitamin 1 tab PO DAILY HPI SWV G0439 HPI Details 77-year-old overweight female with a his tory of hypercholesterolemia osteopenia last seen in September 2022 mammogram is up-to-date bone density is up-to-date patient is here for annual well visit. checks BP at home and is all controlled 130/80 [facility] Medical History (Updated 03/25/23 @ 10:14 by Cynthia James MD) Blood pressure elevated without history of HTN Shingles Osteopenia Impacted cerumen of both ears Shortness of breath on exertion Medicare annual wellness visit, initial Pre-op evaluation Breast cancer screening by mammogram Colon cancer screening Breast nodule Hypercholesterolemia Lipid disorder Vitamin D deficiency Osteopenia Surgical History (Updated 10/15/22 @ 11:08 by Cynthia James MD) H/O colonoscopy Hx of inguinal herniorrhaphy History of arthroplasty of right knee Cystocele with prolapse History of open reduction and internal fixation (ORIF) procedure Family History (Updated 01/03/21 @ 11:05 by EVER Harry) Father Myocardial infarction Mother Diabetes Breast cancer Social History (Updated 03/25/23 @ 10:28 by Cynthia James MD) Housing: House Alcohol intake: current Alcohol intake frequency: holidays/special occasions only Comment: once a year glass of wine Patient Tobacco Use Status: Never used Tobacco e-Cigarette/Vaping Use: Never Used Second Hand Smoke Exposure: No service: No Current occupational status: retired Cognitive needs: No Hearing needs: No Vision needs: Yes (Glasses) Questionnaire Medicare Wellness Checkup [age] What gender do you identify with?: female During the past 4 weeks, how much have you been bothered by emotional problems such as feeling anxious, depressed, irritable, sad or downhearted, and blue?: slightly During the past 4 weeks, has your physical & emotional health limited your social activities with family, friends, neighbors, or groups?: not at all During the past 4 weeks, how much bodily pain have you generally had?: no pain During the past 4 weeks, was someone available to help you if you needed & wanted help?: yes, as much as I wanted During the past 4 weeks, what was the hardest physical activity you could do for at least 2 minutes?: moderate Can you get to places out of walking distance without help? (For eg., can you travel alone on buses, taxis or drive your car?): Yes Can you go shopping for groceries or clothes without someone's help?: Yes Can you prepare your own meals?: Yes Can you do your housework without help?: Yes Because of any health problems, do you need the help of another person with your personal care needs such as eating, bathing, dressing or getting around the house?: No Can you handle your own money without help?: Yes During the past 4 weeks, how would you rate your health in general?: excellent During the past 4 weeks how have things been going for you?: very well; could hardly better Are you having difficulties driving your car?: no Do you always fasten your seat belt when you are in a car?: yes, usually During past 4 weeks, have you been bothered by the following: never: Falling or dizzy when standing up, Sexual problems?, Trouble eating well?, Teeth or denture problems? and Problems using the telephone? and seldom: Tiredness or fatigue? Have you fallen 2 or more times in the past year?: No Are you afraid of falling?: No Are you a smoker?: no During the past 4 weeks, how many drinks of wine, beer, or other alcoholic beverages did you have?: 1 drink or less per week Do you exercise for about 20 minutes 3 or more times a week?: yes, some of the time Have you been given information to help with the following?: no: Hazards in your house that might hurt you? and no: Keeping track of your medications? How often do you have trouble taking medicines the way you have been told to take them?: I do not have to take medicine How confident are you that you can control & manage most of your health problems?: very confident What is your race?: White PHQ-9 Over the last 2 weeks, how often have you been bothered by any of the following problems? 1. Little interest or pleasure in doing things: not at all 2. Feeling down, depressed, or hopeless: not at all 3. Trouble falling or staying asleep, or sleeping too much: not at all 4. Feeling tired or having little energy: not at all 5. Poor appetite or overeating: not at all 6. Feeling bad about yourself - or that you are a failure or have let yourself or your family down: not at all 7. Trouble concentrating on things, such as reading the newspaper or watching te levision: not at all 8. Moving or speaking so slowly that other people could have noticed. Or the opposite - being so fidgety or restless that you have been moving around a lot more than usual: not at all 9. Thoughts that you would be better off or of hurting yourself in some way: not at all Total score: 0 Depression Screening Interpretation: Negative Depression Screening Done: Yes Source: Developed by Drs. Deandre Richter, Samantha Tavarez, Oliverio Rubin and colleagues, with an educational lorene from [employer]. Thrive Questionnaire Date Thrive assessed: 03/25/23 I am a: Patient What is your living situation today?: I have a steady place to live Within the past 12 months, did the food you bought not last and you didn't have the money to get more?: Never true Within the past 12 months, did you worry whether your food would run out before you got money to buy more?: Never true Do you have trouble paying for medicines?: No Do you have trouble getting transportation to medical appointments?: No Do you have trouble paying your heating and electricity bill?: No Do you have trouble taking care of your child, family member or friend?: No Do you have trouble with day-to-day activities such as bathing, preparing meals, shopping, managing finances, etc.?: No Are you currently unemployed and looking for a job?: No Are you interested in more education?: No Currently or been in a relationship where the following occur: no concerns reported THRIVE Score: 0 FAISAL-7 AMB Questionnaire FAISAL-7 Date FAISAL - 7 assessed: 03/25/23 Feeling nervous, anxious, or on edge: 0 = Not at all Not being able to stop or control worryin = Not at all Worrying too much about different things: 0 = Not at all Trouble relaxin = Not at all Being so restless that it is hard to sit still: 0 = Not at all Becoming easily annoyed or irritable: 0 = Not at all Feeling afraid as if something awful might happen: 0 = Not at all Total FAISAL-7 score (0-4 normal; 5-9 mild; 10-14 moderate; 15-21 severe): 0 Source: Developed by Drs. Deandre Richter, Samantha Tavarez, Oliverio Rubin and colleagues, with an educational lorene from [employer]. Review of Systems Const Denies poor appetite and Denies weakness Eyes Denies no additional complaints ENT Reports Normal hearing present, Denies dizziness, Denies nasal congestion, Denies tinnitus and Denies sore throat Card Denies chest pain, Denies syncope, Denies rapid heart rate and Denies dyspnea Resp Denies cough and Denies dyspnea GI Denies change in stool character, Reports constipation, Denies diarrhea, Denies nausea and Denies vomiting Denies urinary frequency, Denies difficulty voiding and Denies dysuria Neuro Reports Normal hearing present, Denies confusion, Denies dizziness, Denies syncope and Denies weakness Psych Denies confusion Physical Exam Vital Signs: Last Vital Signs Pulse 74 03/25/23 10:09 BP 130/78 03/25/23 10:09 Pulse Ox 98 03/25/23 10:09 Oxygen Delivery Method Room Air 03/25/23 10:09 BMI result Body Mass Index 29.4 Const General: No confusion Orientation/consciousness: No confusion HEENT Head: Yes normocephalic Ears: external ears normal and TM's normal bilaterally Face and sinus: Yes normal facial exam Mouth: moist mucous membranes Throat: Yes tonsils normal Eyes Conjunctivae: conjunctivae normal Pupils: Equal, round and reactive pupils present and Pupil accommodation reflex normal Direct Ophthalmoscopy: normal light reflex Neck Neck: No lymphadenopathy Thyroid: Thyroid normal Chest Chest palpation & inspection: normal inspection of the chest Resp Effort & Inspection: normal respiratory effort and no audible wheezes Auscultation: clear to auscultation bilaterally, no crackles, no wheezes and lung sounds not diminished Cardio Rate: regular rate Rhythm: regular rhythm Peripheral pulses: radial pulses present and dorsalis pedis present GI Other: guaiac negative Palpation (GI): no masses Auscultation: normal bowel sounds and normoactive bowel sounds Skin General skin exam: no rashes or lesions noted Rashes: no rashes Neuro General: No confusion Cranial nerves: Yes Equal, round and reactive pupils present and Yes Normal hearing present Cognition (Neuro): normal cognition Gait exam (Neuro): Normal gait present Motor exam (neuro): 5/5 motor strength present throughout Deep tendon reflexes (DTR's): Right brachioradialis reflex intensity grade: 2+, Left brachioradialis reflex intensity grade: 2+, Right patellar reflex intensity grade: 2+ and Left patellar reflex intensity grade: 2+ Extrem General: No edema Office Procedures Flu Questionnaire Does the patient have a severe egg allergy?: No Does the patient have severe life threatening allergies?: No Does the patient have a fever or illness today?: No Has the patient ever had Guillain-[place] Syndrome?: No Has the patient ever had any past reaction to a flu shot?: No Immunizations flu vacc [id number] 6mos up(PF) 60 mcg(15 mcgx4)/0.5 mL IM syringe Performing Provider: Cynthia James MD Performing Location: [facility] Administered by: Veronica Lomeli CMA on 03/25/23 10:48 Dose Route Admin Location Dispensed Lot Number Expiration Date NDC Braille [employer]oder 0.5 mL IM Right Deltoid 0.5 mL [id number] 08/18/23 [id number] [employer] VIS Given Date VIS Provided VIS Publication Date 03/25/23 Single Vaccine 20 Eligibility Eligibility Date Funding Source Not [facility] Eligible 03/25/23 Private Assessment & Plan Assessment & Plan (1) Medicare annual wellness visit, subsequent: Code(s): Z00.00 - Encounter for general adult medical examination without abnormal findings Plan: Keep well hydrated, eat healthy and keep active (2) Osteopenia: Comment: January 2022 Code(s): M85.80 - Other specified disorders of bone density and structure, unspecified site Plan: Patient is due for bone density in January 2024. Has the vitamin-D and multivitamins (3) Hypercholesterolemia: Code(s): E78.00 - Pure hypercholesterolemia, unspecified Plan: Avoid fried foods, chicken skin, eggs, butter margarine, pastries and meat. Be it pork or beef they have a lot of cholesterol LDL goal of less than 130 and triglyceride of less than 150. Blood work requested Orders: Orders Influenza [id number] Immunization Today Z23 - Encounter for immunization Quality Reporting (2020) Depression/Bipolar (159/160/161/177) PHQ-9: Total score: 0 Coding Level of Care Code Medicare Subsequent (G0439) Diagnoses Medicare annual wellness visit, subsequent Z00.00 Osteopenia M85.80 Hypercholesterolemia E78.00
== END 2023-03-25 10:53 | disposition home or self-care (01) ==
PROVIDERS: PCP Internal Medicine; Visit Provider Internal Medicine
DX: Z00.00 Encounter for general adult medical examination without abnormal findings (principal); M85.80 Other specified disorders of bone density and structure, unspecified site; E78.00 Pure hypercholesterolemia, unspecified; Z23 Encounter for immunization
CPT/HCPCS: 90471; 90686; G0439

== ENCOUNTER 2023-10-04 10:03 | Outpatient (REF) | payer MEDICARE, BC, SELFPAY ==
[2023-10-04 10:16] LABS: MANUAL DIFF FLAG NO
[2023-10-04 10:39] LABS: Basophils Absolute Auto 0.1 X10*3/uL (0.0-0.2); Basophils Percent Auto 0.5 % (0-2); Eosinophils Absolute Auto 0.1 X10*3/uL (0.0-0.4); Eosinophils Percent Auto 0.9 % (0-4); Hematocrit 41.5 % (37.0-47.0); Imm Gran Abs Auto 0.08 X10*3/uL (0.00-0.03); Imm Gran Pct Auto 0.9 % (0.0-0.4); Lymphocytes Absolute Auto 2.1 X10*3/uL (1.2-4.9); Lymphocytes Percent Auto 22.5 % (20-40); Mean Corpuscular HGB Conc 33.7 g/dl (31.0-35.0); Mean Corpuscular Hemoglobin 30.7 pg (27.0-33.0); Mean Platelet Volume 10.2 fL (9.4-12.3); Monocytes Absolute Auto 1.1 X10*3/uL (0.1-1.2); Monocytes Percent Auto 11.8 % (2-11); Neutrophils Absolute Auto 5.8 x10*3/uL (2.0-8.3); Neutrophils Percent Auto 63.4 % (45-73); Platelet Count 224 X10*3/uL (160-400); Red Blood Count 4.56 X10*6/uL (4.20-5.50); Red Cell Distribution Width 13.8 % (11.0-16.0); White Blood Count 9.1 X10*3/uL (4.8-10.8)
[2023-10-04 11:16] LABS: Alanine Aminotransferase 17 U/L (0-31); Albumin Level 4.2 g/dL (3.5-5.0); Alkaline Phosphatase 76 U/L (39-117); Anion Gap 12 (12-20); Aspartate Amino Transferase 24 U/L (5-31); Bilirubin Total 0.6 mg/dL (0.0-1.0); Blood Urea Nitrogen 12 mg/dL (9-16); Calcium 9.7 mg/dL (8.4-10.2); Carbon Dioxide 28 mmol/L (22-29); Chloride 104 mmol/L (96-108); Cholesterol 216 mg/dL (<200); Estimated Glomerular Filt Rate > 60; Glucose Random 101 mg/dL (60-115); HDL Cholesterol 86 mg/dL (>40); LDL Cholesterol Calculated 114 mg/dL (<100); Potassium 4.2 mmol/L (3.3-5.1); Sodium 140 mmol/L (135-145); Total Protein 7.8 g/dL (6.5-8.0); Triglycerides 83 mg/dL (<150)
[2023-10-04 11:34] LABS: Free T4 (Free Thyroxine) 1.07 ng/dL (0.71-1.85); Thyroid Stimulating Hormone 2.34 uIU/mL (0.32-4.0)
[2023-10-04 11:45] LABS: Vitamin B12 816 pg/mL (200-900)
== END 2023-10-04 10:04 | disposition home or self-care (01) ==
LOC: HO.LAB 10:03
PROVIDERS: PCP Internal Medicine; Visit Provider Internal Medicine
DX: E78.00 Pure hypercholesterolemia, unspecified (principal)
CPT/HCPCS: 36415; 80053; 80061; 82607; 82746; 84439; 84443; 85025

== ENCOUNTER 2023-10-08 09:34 | Outpatient (AMB) | payer MEDICARE, BC, SELFPAY ==
[2023-10-08 09:35] VITALS: BP 132/78; PULSE 78; O2SAT 95; BMI 28.9
--- NOTE | 2023-10-08 09:35 | MHC.PC.OV ---
Vital Signs 10/08/23 09:35 Height 5 ft 3 in Weight 163 lb 2 oz BMI 28.9 BP 132/78 Blood Pressure Location Lt brachial Position Sitting Pulse 78 Pulse Source Pulse Oximeter Pulse Oximetry (%) 95 Oxygen Delivery Method Room Air Intake Visit Reasons: 6 month f/u [employer] Required: No Accompanied by: Self / Same As Patient Allergies penicillin V Allergy (Unknown, Verified 10/08/23 09:36) throat/tongue swells tree nut Allergy (Unknown, Verified 10/08/23 09:36) throat/tongue swells Tobacco use date assessed: 10/08/23 Fall risk assessment: No Falls in past year Last assessed Fall Risk: 10/08/23 Dental Screening Dental Screen Date: 10/08/23 Did you have a dental visit in the last 12 months?: Yes Did you have a dental problem in the last 6 months where you did not have access to dental care?: No Was dental information given to patient?: Patient has dentist HPI 6 month f/u HPI Details 78-year-old overweight female with a history of osteopenia hypercholesterolemia coming in for follow-up. Last seen in March having had a wellness exam. Patient's bone density is up-to-date. Mammogram is up-to-date. BP has been mostly good at home 1/3 of the [id number] SBP [facility] Medical History (Updated 10/08/23 @ 10:18 by Cynthia James MD) Blood pressure elevated without history of HTN Shingles Osteopenia Impacted cerumen of both ears Shortness of breath on exertion Medicare annual wellness visit, initial Pre-op evaluation Breast cancer screening by mammogram Colon cancer screening Breast nodule Hypercholesterolemia Lipid disorder Vitamin D deficiency Osteopenia Surgical History H/O colonoscopy Hx of inguinal herniorrhaphy History of arthroplasty of right knee Cystocele with prolapse History of open reduction and internal fixation (ORIF) procedure Family History Father Myocardial infarction Mother Diabetes Breast cancer Social History (Updated 03/25/23 @ 10:28 by Cynthia James MD) Housing: House Alcohol intake: current Alcohol intake frequency: holidays/special occasions only Comment: once a year glass of wine Patient Tobacco Use Status: Never used Tobacco e-Cigarette/Vaping Use: Never Used Second Hand Smoke Exposure: No service: No Current occupational status: retired Cognitive needs: No Hearing needs: No Vision needs: Yes (Glasses) Questionnaire PHQ-9 Over the last 2 weeks, how often have you been bothered by any of the following problems? 1. Little interest or pleasure in doing things: not at all 2. Feeling down, depressed, or hopeless: not at all 3. Trouble falling or staying asleep, or sleeping too much: not at all 4. Feeling tired or having little energy: not at all 5. Poor appetite or overeating: not at all 6. Feeling bad about yourself - or that you are a failure or have let yourself or your family down: not at all 7. Trouble concentrating on things, such as reading the newspaper or watching television: not at all 8. Moving or speaking so slowly that other people could have noticed. Or the opposite - being so fidgety or restless that you have been moving around a lot more than usual: not at all 9. Thoughts that you would be better off or of hurting yourself in some way: not at all Total score: 0 Depression Screening Interpretation: Negative Depression Screening Done: Yes Source: Developed by Drs. Deandre Richter, Samantha Tavarez, Oliverio Rubin and colleagues, with an educational lorene from [employer]. Thrive Questionnaire Date Thrive assessed: 10/08/23 I am a: Patient What is your living situation today?: I have a steady place to live Within the past 12 months, did the food you bought not last and you didn't have the money to get more?: Never true Within the past 12 months, did you worry whether your food would run out before you got money to buy more?: Never true Do you have trouble paying for medicines?: No Do you have trouble getting transportation to medical appointments?: No Do you have trouble paying your heating and electricity bill?: No Do you have trouble taking care of your child, family member or friend?: No Do you have trouble with day-to-day activities such as bathing, preparing meals, shopping, managing finances, etc.?: No Are you currently unemployed and looking for a job?: No Are you interested in more education?: No Please select the resources that you would like help with: None Currently or been in a relationship where the following occur: No concerns reported THRIVE Score: 0 AUDIT C Alcohol Use Questionnaire (AUDIT-C) 1. How often do you have a drink containing alcohol?: Monthly or less 2. How many drinks containing alcohol do you have on a typical day when you are drinking?: 1 or 2 3. How often do you have six or more drinks on one occasion?: Never Total Score: 1 FAISAL-7 AMB Questionnaire FAISAL-7 Date FAISAL - 7 assessed: 10/08/23 Feeling nervous, anxious, or on edge: 0 = Not at all Not being able to stop or control worryin = Not at all Worrying too much about different things: 0 = Not at all Trouble relaxin = Not at all Being so restless that it is hard to sit still: 0 = Not at all Becoming easily annoyed or irritable: 0 = Not at all Feeling afraid as if something awful might happen: 0 = Not at all Total FAISAL-7 score (0-4 normal; 5-9 mild; 10-14 moderate; 15-21 severe): 0 Source: Developed by Drs. Deandre Richter, Samantha Tavarez, Oliverio Rubin and colleagues, with an educational lorene from [employer]. Physical exam (Primary Care) Vital Signs: Last Vital Signs Pulse 78 10/08/23 09:35 BP 132/78 10/08/23 09:35 Pulse Ox 95 10/08/23 09:35 Oxygen Delivery Method Room Air 10/08/23 09:35 BMI result Body Mass Index 28.9 Tobacco/Smoking Status: Tobacco use Status Tobacco use date assessed 10/08/23 10/08/23 09:37 Patient Tobacco Use Status Never used Tobacco 10/08/23 09:37 e-Cigarette/Vaping Use Never Used 10/08/23 09:37 PHQ-9: PHQ-9 Score PHQ-9: Total score 0 10/08/23 10:14 Depression Screening Interpretation: Negative Thrive Assessment: Date of Thrive Assessment Date Thrive assessed 10/08/23 10/08/23 09:37 Currently or been in a relationship where the following occur: No concerns reported Const General: alert; No acute distress Eyes Conjunctivae: conjunctivae normal Resp Auscultation: clear to auscultation bilaterally Cardio Rate: regular rate Rhythm: regular rhythm GI Inspection: Yes normal to inspection Extrem General: Yes normal to inspection and No edema Immunizations pneumoc 20-maddie conj-dip cr(PF) 0.5 mL IM syringe Performing Provider: Cynthia James MD Performing Location: [facility] Administered by: EVER Kincaid on 10/08/23 10:31 Dose Route Admin Location Dispensed Lot Number Expiration Date [employer] 0.5 mL IM Left Deltoid 0.5 mL [id number] 07/19/24 [id number] WYETH/PFIZER VIS Given Date VIS Provided VIS Publication Date 10/08/23 Single Vaccine 21 Eligibility Eligibility Date Funding Source Not [facility] Eligible 10/08/23 Private Assessment and Plan Assessment & Plan (1) Hypercholesterolemia: Code(s): E78.00 - Pure hypercholesterolemia, unspecified Plan: Avoid fried foods, chicken skin, eggs, butter margarine, pastries and meat. Be it pork or beef they have a lot of cholesterol LDL goal of less than 130 and triglyceride of less than 150. September 2023 blood work within normal limits (2) Osteopenia: Comment: January 2022 Code(s): M85.80 - Other specified disorders of bone density and structure, unspecified site Plan: Patient is up-to-date with bone density continue keeping active, discussed about calcium in the diet and vitamin-D (3) Overweight (BMI 25.0-29.9): Code(s): E66.3 - Overweight Plan: Diet and exercise (4) Blood pressure elevated without history of HTN: Code(s): R03.0 - Elevated blood-pressure reading, without diagnosis of hypertension Plan: Patient is advised to continue on monitoring blood pressure periodically. (5) Impaired fasting blood sugar: Code(s): R73.01 - Impaired fasting glucose Plan: Decrease the amount of carbohydrate intake, pasta, bread, rice and potatoes are all sugar and that is aside from all the sweet stuff, remember that fruits are good but they are Sweet also. Orders: Orders Pneumococcal 20 Immunization Today Z23 - Encounter for immunization Medications: New pneumoc 20-maddie conj-dip cr(PF) 0.5 mL IM ONCE 0.5 mL 0RF Z23 - Encounter for immunization Coding Level of Care Code Est Pt Level 4 (29612) Diagnoses Hypercholesterolemia E78.00 Osteopenia M85.80 Overweight (BMI 25.0-29.9) E66.3 Blood pressure elevated without history of HTN R03.0 Impaired fasting blood sugar R73.01
== END 2023-10-08 10:33 | disposition home or self-care (01) ==
PROVIDERS: PCP Internal Medicine; Visit Provider Internal Medicine
DX: E78.00 Pure hypercholesterolemia, unspecified (principal); M85.80 Other specified disorders of bone density and structure, unspecified site; E66.3 Overweight; R03.0 Elevated blood-pressure reading, without diagnosis of hypertension; R73.01 Impaired fasting glucose; Z23 Encounter for immunization
CPT/HCPCS: 90471; 90677; 99214

== ENCOUNTER 2024-02-10 09:03 | Outpatient (REF) | payer MEDICARE, BC, SELFPAY ==
--- OUTSIDE RECORDS SUMMARY | 2024-02-10 09:09 | XMS_ITS | Patient Health Record ---
Author Organization [facility] Address [address] [place] [address] Care Team Providers Care Desk Clerk Name Role Phone Po Cynthia HALL Primary Care Provider Deandre Sanches [phone] ALLERGIES Allergen (clinical drug ingredient) Drug/Non Drug Allergy documented on EMR Reaction Allergy Type Onset Date Status Penicillin Unknown Drug Allergy Active tree nuts (uncoded) Unknown Allergy Active REASON FOR REFERRAL No Information MEDICATIONS Medication SIG (Take, Route, Frequency, Duration) Notes Start Date End Date Status Vitamin D3 Adult Gummies 25 MCG (1000 UT) 1 tablet Orally Once a day for 30 day(s) Active Multivitamin - 1 tablet Orally Once a day for 30 day(s) Active IMMUNIZATIONS Vaccine Route Administration Date Status Comme nts Influenza Unknown 03/23/2021 Administered SOCIAL HISTORY Tobacco Use: Social History Observation Description Date Details (start date - stop date) Never Smoker NA - NA Sex Assigned At : Social History Observation Description Sex Assigned At Unknown Tobacco Use/Smoking Question Answer Notes Patient is a nonsmoker Alcohol Screen Question Answer Notes Did you have a drink contain ing alcohol in the past year? Yes How often did you have a dri nk containing alcohol in the past year? Monthly or less (1 point) How many drinks did you have on a typical day when you were drinking in the past year? 1 or 2 drinks (0 point) How often did you have 6 or more drinks on one occasion in the past year? Never (0 point) Points 1 Interpretation Negative PROBLEMS Problem Type ICD Code Onset Dates Problem Status W/U Status Risk SNOMED Code Notes Problem Encounter for screening for malignant neoplasm of colon (Z12.11) Active confirmed 865228150 Problem Preprocedural examination (Z01.818) Active confirmed 082135250 Problem Need for prophylactic antibiotic (Z79.2) Active confirmed 606854111 Problem Diverticulosis of colon (K57.30) Active confirmed Diverticulosi s of colon (322177272) PLAN OF TREATMENT Future Test Test Name Order Date COLONOSCOPY 07/27/2016 COLONOSCOPY 03/23/2021 Insurance Providers Payer Name Payer Address Payer Phone Subscriber Number Group Number Insured Name Patient Relationship to Insured Coverage Start Date Coverage End Date MEDICARE OF [place] [address] [place] [address] [id number] JUSTO DÍAZN Self - patient is the insured [facility] [address] [place], [place] [id number] JUSTO DÍAZN Self - patient is the insured MEDICAL (GENERAL) HISTORY Medical History History ICD Code Denies [place],DM,CVA,Lung disease,renal dise ase Negative screening colonosco py in 2005 except for some sigmoid diverticulosis and internal hemorrhoids Osteoporosis Surgical History Surgery Date(Month/Year) Bladder prolapse--Dr. Duran, then a 2nd one with Dr. Palacios 2015 Broken arm surgery--screws Right inguinal hernia repair-Dr. Angelo soliman Right knee replacement in 05/2020-Dr. Sandhya moreno
== END 2024-02-10 09:04 | disposition home or self-care (01) ==
LOC: HO.MAMMO 09:03
PROVIDERS: PCP Internal Medicine; Visit Provider Internal Medicine
DX: Z12.31 Encounter for screening mammogram for malignant neoplasm of breast (principal)
CPT/HCPCS: 77063; 77067

== ENCOUNTER → 2024-02-10 09:15 | Outpatient (BNV) | payer MEDICARE, BC, SELFPAY | PROVIDERS: PCP Internal Medicine; Visit Provider Internal Medicine | DX: Z12.31 Encounter for screening mammogram for malignant neoplasm of breast (principal) | CPT/HCPCS: 77063; 77067 ==

== ENCOUNTER 2024-07-24 11:29 | Outpatient (AMB) | payer MEDICARE, BC, SELFPAY ==
[2024-07-24 11:30] VITALS: BP 146/82; PULSE 67; TEMP 36.2; O2SAT 97; BMI 29.1
--- NOTE | 2024-07-24 11:30 | A.OFFVIS_ITS ---
Intake Vital Signs 07/24/24 11:30 Height 5 ft 3 in Weight 164 lb 4 oz BMI 29.1 BP 146/82 H Blood Pressure Location Lt brachial Position Sitting Pulse 67 Pulse Source Pulse Oximeter Temp 97.1 F Temp Source Temporal Artery Scan Pulse Oximetry (%) 97 Oxygen Delivery Method Room Air Intake Visit Reasons: [facility] G0439 Clinical Application Manager Required: No Accompanied by: Self / Same As Patient Allergies penicillin V Allergy (Unknown, Verified 07/24/24 11:41) throat/tongue swells tree nut Allergy (Unknown, Verified 07/24/24 11:41) throat/tongue swells Medication List - Last Reconciled 07/24/24 by Cynthia James MD cholecalciferol (vitamin D3) 25 mcg PO DAILY epinephrine (EpiPen) 0.3 mg IM for anaphylactic shock PRN; for 2 doses multivitamin 1 tab PO DAILY HPI SWV G0439 HPI Details Rebecca of care patient did [place] [facility] [place] for the osteopenia. Gastroenterology Dr. Garnica [facility] Medical History (Updated 10/08/23 @ 10:18 by Cynthia James MD) Blood pressure elevated without history of HTN Shingles Osteopenia Impacted cerumen of both ears Shortness of breath on exertion Medicare annual wellness visit, initial Pre-op evaluation Breast cancer screening by mammogram Colon cancer screening Breast nodule Hypercholesterolemia Lipid disorder Vitamin D deficiency Osteopenia Surgical History H/O colonoscopy Hx of inguinal herniorrhaphy History of arthroplasty of right knee Cystocele with prolapse History of open reduction and internal fixation (ORIF) procedure Family History (Updated 07/24/24 @ 12:02 by Cynthia James MD) Father Myocardial infarction Mother Diabetes Breast cancer Maternal Aunt Diabetes Maternal Grandmother Diabetes Social History Housing: House Alcohol intake: current Alcohol intake frequency: holidays/special occasions only Comment: once a year glass of wine Patient Tobacco Use Status: Never used Tobacco e-Cigarette/Vaping Use: Never Used Second Hand Smoke Exposure: No service: No Current occupational status: retired Cognitive needs: No Hearing needs: No Vision needs: Yes (Glasses) Questionnaire Medicare Wellness Checkup [age] What gender do you identify with?: female During the past 4 weeks, how much have you been bothered by emotional problems such as feeling anxious, depressed, irritable, sad or downhearted, and blue?: slightly During the past 4 weeks, has your physical & emotional health limited your social activities with family, friends, neighbors, or groups?: not at all During the past 4 weeks, how much bodily pain have you generally had?: no pain During the past 4 weeks, was someone available to help you if you needed & wanted help?: yes, as much as I wanted During the past 4 weeks, what was the hardest physical activity you could do for at least 2 minutes?: very heavy Can you get to places out of walking distance without help? (For eg., can you travel alone on buses, taxis or drive your car?): Yes Can you go shopping for groceries or clothes without someone's help?: Yes Can you prepare your own meals?: Yes Can you do your housework without help?: Yes Because of any health problems, do you need the help of another person with your personal care needs such as eating, bathing, dressing or getting around the house?: No Can you handle your own money without help?: Yes During the past 4 weeks, how would you rate your health in general?: excellent During the past 4 weeks how have things been going for you?: pretty well Are you having difficulties driving your car?: no Do you always fasten your seat belt when you are in a car?: yes, usually During past 4 weeks, have you been bothered by the following: never: Falling or dizzy when standing up, Sexual problems?, Trouble eating well?, Teeth or denture problems?, Problems using the telephone? and Tiredness or fatigue? Have you fallen 2 or more times in the past year?: No Are you afraid of falling?: No Are you a smoker?: no During the past 4 weeks, how many drinks of wine, beer, or other alcoholic beverages did you have?: 1 drink or less per week Do you exercise for about 20 minutes 3 or more times a week?: yes, most of the time Have you been given information to help with the following?: no: Hazards in your house that might hurt you? and no: Keeping track of your medications? How often do you have trouble taking medicines the way you have been told to take them?: I do not have to take medicine How confident are you that you can control & manage most of your health problems?: very confident What is your race?: White PHQ-9 Over the last 2 weeks, how often have you been bothered by any of the following problems? 1. Little interest or pleasure in doing things: not at all 2. Feeling down, depressed, or hopeless: not at all 3. Trouble falling or staying asleep, or sleeping too much: not at all 4. Feeling tired or having little energy: not at all 5. Poor appetite or overeating: not at all 6. Feeling bad about yourself - or that you are a failure or have let yourself or your family down: not at all 7. Trouble concentrating on things, such as reading the newspaper or watching television: not at all 8. Moving or speaking so slowly that other people could have noticed. Or the opposite - being so fidgety or restless that you have been moving around a lot more than usual: not at all 9. Thoughts that you would be better off or of hurting yourself in some way: not at all Total score: 0 Depression Screening Interpretation: Negative Depression Screening Done: Yes 17717 - PHQ-9 Billing: Yes Source: Developed by Drs. Deandre Richter, Samantha Tavarez, Oliverio Rubin and colleagues, with an educational lorene from [employer]. Review of Systems Const Denies poor appetite and Denies weakness Eyes Denies no additional complaints ENT Reports Normal hearing present, Denies dizziness, Denies nasal congestion, Denies tinnitus and Denies sore throat Card Denies chest pain, Denies syncope, Denies rapid heart rate and Denies dyspnea Resp Denies cough and Denies dyspnea GI Denies change in stool character, Reports constipation, Denies diarrhea, Denies nausea and Denies vomiting Denies urinary frequency, Denies difficulty voiding and Denies dysuria Neuro Reports Normal hearing present, Denies confusion, Denies dizziness, Denies syncope and Denies weakness Psych Denies confusion Physical Exam Vital Signs: Last Vital Signs Temp 97.1 F 07/24/24 11:30 Pulse 67 07/24/24 11:30 BP 146/82 H 07/24/24 11:30 Pulse Ox 97 07/24/24 11:30 Oxygen Delivery Method Room Air 07/24/24 11:30 BMI result Body Mass Index 29.1 Const General: No confusion Orientation/consciousness: No confusion HEENT Head: Yes normocephalic Ears: external ears normal and TM's normal bilaterally Face and sinus: Yes normal facial exam Mouth: moist mucous membranes Throat: Yes tonsils normal Eyes Conjunctivae: conjunctivae normal Pupils: Equal, round and reactive pupils present and Pupil accommodation reflex normal Direct Ophthalmoscopy: normal light reflex Neck Neck: No lymphadenopathy Thyroid: Thyroid normal Chest Chest palpation & inspection: normal inspection of the chest Resp Effort & Inspection: normal respiratory effort and no audible wheezes Auscultation: clear to auscultation bilaterally, no crackles, no wheezes and lung sounds not diminished Cardio Rate: regular rate Rhythm: regular rhythm Peripheral pulses: radial pulses present and dorsalis pedis present GI Other: guaiac negative Palpation (GI): no masses Auscultation: normal bowel sounds and normoactive bowel sounds Rectal Exam - Female: deferred Skin General skin exam: no rashes or lesions noted Rashes: no rashes Neuro General: No confusion Cranial nerves: Yes Equal, round and reactive pupils present and Yes Normal hearing present Cognition (Neuro): normal cognition Gait exam (Neuro): Normal gait present Motor exam (neuro): 5/5 motor strength present throughout Deep tendon reflexes (DTR's): Right brachioradialis reflex intensity grade: 2+, Left brachioradialis reflex intensity grade: 2+, Right patellar reflex intensity grade: 2+ and Left patellar reflex intensity grade: 2+ Extrem General: No edema Assessment & Plan Assessment & Plan (1) Medicare annual wellness visit, subsequent: Code(s): Z00.00 - Encounter for general adult medical examination without abnormal findings Plan: Patient is advised to eat healthy, keep well hydrated, keep active and have adequate sleep. (2) Impaired fasting blood sugar: Code(s): R73.01 - Impaired fasting glucose Plan: Decrease the amount of carbohydrate intake, pasta, bread, rice and potatoes are all sugar and that is aside from all the sweet stuff, remember that fruits are good but they are Sweet also. Advised blood work (3) Hypercholesterolemia: Code(s): E78.00 - Pure hypercholesterolemia, unspecified Plan: Avoid fried foods, chicken skin, eggs, butter margarine, pastries and meat. Be it pork or beef they have a lot of cholesterol (4) Osteopenia: Comment: January 2022 Code(s): M85.80 - Other specified disorders of bone density and structure, unspecified site Plan: Discussed that we can do bone density follow-up Plan History of Present Illness The patient is a 78-year-old female presenting with an annual wellness examination. Her medical history includes previous tuberculosis, osteopenia being monitored by [facility] [place], and hyperglycemia with mildly elevated blood sugar levels during the last evaluation in September 2023. Her cholesterol level has improved and is currently noted as 114 mg/dL. The patient has a llergies to penicillin and nuts. She proactively attends the gym three times a week and emphasizes her familial history of type 2 diabetes?her mother and other maternal relatives have had sugar-related issues. She remains attentive to dietary carbohydrates. Her last bone density assessment was in January 2022, and she ensures regular follow-up screenings. She denies experiencing falls, dizziness, nausea, or any disruptive symptoms. Her overall physical activity and health consciousness, including vitamin D and multivitamin supplementation, contribute to her well-being. Health Maintenance - Mammogram up to date as of February 2024 - Latest bone density test conducted in January 2022 - Regular blood tests recommended including fasting blood sugar levels - Engages in regular physical activity, attending the gym thrice a week - Monitoring of blood sugar trends advised due to family history of type 2 diabetes - Vaccinations: Current with pneumonia, tetanus, and shingles vaccines Social History - Exercise: Attends gym regularly, exercises three times weekly - Nutritional Intake: Consumes three to four glasses of water daily; mindful of dietary intake particularly concerning carbohydrates - Household: Lives with family; 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 - Alcohol Use: Rare, occasional wine consumption at social [id number] Review of Systems - General: Denies fever and weight changes - Cardiovascular: Denies chest pain, heaviness, or discomfort - Respiratory: Denies shortness of breath or cough - Gastrointestinal: Reports heartburn occasionally on weekends, denies nausea or vomiting - Genitourinary: Denies changes in urine frequency, wakes once at night - Neurological: Denies dizziness, syncope, and difficulty with balance - Musculoskeletal: Denies falls - Allergic/Immunologic: Reports allergy to penicillin and nuts Physical Exam General: Cooperative, healthy appearing, comfortable, no acute distress and well developed Orientation: Patient oriented x3 Limitations: No limitations Head: Normal to inspection Ears: Hearing grossly normal bilaterally, some ear wax present but still open Nose: Normal external nose present Face and sinus: Normal facial exam Eyes: Appearance normal, both eyes and all related structures Neck: Normal visual inspection and Yes full ROM Respiratory: Normal respiratory effort and able to speak in complete sentences. Clear to auscultation bilaterally Cardiovascular: Regular rate and rhythm. Normal S1 and S2 GI: Normal to inspection. Soft to palpation and nontender Skin: No rashes or lesions noted Neuro: Patient oriented x3 Extremities: Normal to inspection Results - Lab Results: Blood sugar noted at 101 mg/dL, cholesterol at 114 mg/dL, renal function normal Plan The patient's annual wellness visit resulted in ensuring continuity of care for existing conditions. We scheduled bone density and mammogram assessments. Monitoring of fasting blood glucose is advised, particularly given her family history of type 2 diabetes. The patient's cholesterol and osteopenia remain well managed with lifestyle interventions, and a new epinephrine auto-injector was prescribed. No additional medications were introduced as her test results are stable. Patient was informed and verbally consented to the use of an ambient scribe for clinic note documentation during this visit. Discussion Notes Together with the patient, I reviewed her current health management, emphasizing the importance of ongoing exercise and dietary control to mitigate the risk of diabetes. We discussed the upcoming bone density scan alongside her regular mammogram, tentatively scheduled for January. I reiterated the vital nature of screenings given her family history of diabetes. Regarding allergies, proper adherence and timely renewal of the epinephrine auto-injector were discussed, ensuring patient understanding of administration during allergic reactions. Patient Instructions - Continue attending the gym at least three times weekly. - Drink at least six to eight glasses of water each day. - Follow a low-carbohydrate diet, mindful of family history of diabetes. - Schedule blood work; fasting is required. - Renew EpiPen at the pharmacy promptly. - Pay attention to and report any changes in symptoms or health. - Get bone density test during the January mammogram appointment. - Avoid large crowds and practice caution amidst flu and COVID risks. Orders: Orders Complete Blood Count Auto Diff Today E78.00 - Pure hypercholesterolemia, unspecified Comprehensive Met. Panel Today E78.00 - Pure hypercholesterolemia, unspecified Thyroid Stimulating Hormone Today E78.00 - Pure hypercholesterolemia, unspecified Lipid Panel Today E78.00 - Pure hypercholesterolemia, unspecified Vitamin B12 and Folate Today E78.00 - Pure hypercholesterolemia, unspecified Vitamin D 25-OH Total Today E78.00 - Pure hypercholesterolemia, unspecified XR DEXA axial skeleton Today M81.0 - Age-related osteoporosis without current pathological fracture, M85.80 - Other specified disorders of bone density and structure, unspecified site Free T4 (Free Thyroxine) Today E78.00 - Pure hypercholesterolemia, unspecified Medications: Refilled epinephrine (EpiPen) 0.3 mg IM for anaphylactic shock PRN; for 2 doses 2 ea 0RF anaphylaxis M85.80 - Other specified disorders of bone density and structure, unspecified site Quality Reporting (2019) Depression/Bipolar (159/160/161/177) PHQ-9: Total score: 0 Coding Level of Care Code Medicare Subsequent (G0439) Diagnoses Medicare annual wellness visit, subsequent Z00.00 Impaired fasting blood sugar R73.01 Hypercholesterolemia E78.00 Osteopenia M85.80 Additional Codes PHQ-9 - 49862 - PHQ-9 Billing: Yes ([id number]) Advance Care Planning Advance Care Planning discussion: Exists, not on file
--- OUTSIDE RECORDS SUMMARY | 2024-07-24 12:15 | XMS_ITS | Patient Health Record ---
Author Organization [facility] Address [address] [place] [address] Care Team Providers Care Mobile Nurse Name Role Phone Po Cynthia HALL Primary Care Provider Deandre Sanches [phone] Allergies Allergen (clinical drug ingredient) Drug/Non Drug Allergy documented on EMR Reaction Allergy Type Onset Date Status Penicillin Unknown Drug Allergy Active tree nuts (uncoded) Unknown Allergy Active Reason For Referral No Information Medications Medication SIG (Take, Route, Frequency, Duration) Notes Start Date End Date Status Vitamin D3 Adult Gummies 25 MCG (1000 UT) 1 tablet Orally Once a day for 30 day(s) Active Multivitamin - 1 tablet Orally Once a day for 30 day(s) Active Immunizations Vaccine Route Administration Date Status Comme nts Influenza Unknown 03/23/2021 Administered Social History Tobacco Use: Social History Observation Description Date Details (start date - stop date) Never Smoker NA - NA Tobacco Use/Smoking Question Answer Notes Patient is [...] Never (0 point) Points 1 Interpretation Negative Section Notes: Nonsmoker; no sig. alcohol Nonsmoker; no sig. alcohol Problems Problem Type SNOMED Code ICD Code Onset Dates Problem Status W/U Status Risk Notes Problem 545743889 Encounter for screening for malignant neoplasm of colon (Z12.11) Active confirmed Problem 090003642 Preprocedural examination (Z01.818) Active confirmed Problem Diverticulosis of colon (088009007) Diverticulosis of colon (K57.30) Active confirmed Problem 226810053 Need for prophylactic antibiotic (Z79.2) Active confirmed Plan Of Treatment Future Test Test Name Order Date COLONOSCOPY 07/27/2016 COLONOSCOPY 03/23/2021 Insurance Providers Payer Name Payer Address Payer Phone Subscriber Number Group Number Insured Name Patient Relationship to Insured Coverage Start Date Coverage End Date MEDICARE OF [place] [address] [place] [address] [phone] [id number] JUSTO DÍAZN Self - patient is the insured [facility] [address] [place], [place] [id number] JUSTO DÍAZN Self - patient is the insured Medical (General) History Medical History History ICD Code Denies [place],DM,CVA,Lung disease,renal dise ase Negative screening colonosco py in 2005 except for some sigmoid diverticulosis and internal hemorrhoids Osteoporosis Surgical History Surgery Date(Month/Year) Bladder prolapse--Dr. Duran, then a 2nd one with Dr. Palacios 2015 Broken arm surgery--screws 1989' Right inguinal hernia repair-Dr. Angelo soliman Right knee replacement in 05/2020-Dr. Sandhya moreno
== END 2024-07-24 12:15 | disposition home or self-care (01) ==
LOC: HO.HMCH 11:29
PROVIDERS: PCP Internal Medicine; Visit Provider Internal Medicine
DX: Z00.00 Encounter for general adult medical examination without abnormal findings (principal); R73.01 Impaired fasting glucose; E78.00 Pure hypercholesterolemia, unspecified; M85.80 Other specified disorders of bone density and structure, unspecified site

== ENCOUNTER → 2024-07-24 11:29 | Outpatient (BNVA) | payer MEDICARE, BC, SELFPAY | PROVIDERS: PCP Internal Medicine; Visit Provider Internal Medicine | DX: Z00.00 Encounter for general adult medical examination without abnormal findings (principal); R73.01 Impaired fasting glucose; E78.00 Pure hypercholesterolemia, unspecified; M85.80 Other specified disorders of bone density and structure, unspecified site | CPT/HCPCS: 96127 ==

== ENCOUNTER 2025-02-16 10:50 | Outpatient (REF) | payer MEDICARE, BC, SELFPAY ==
--- NOTE | ~2025-02-16 | MM_ITS ---
EXAMINATION: DXA BONE DENSITY AXIAL HISTORY: M81.0 - Age-related osteoporosis without current pathological fracture TECHNIQUE: Kewen Dual energy absorptiometry (DEXA) of the lumbar spine, total left hip, and femoral neck was performed. COMPARISON: Comparison is made with the prior examination dated 01/30/2022. FINDINGS: The bone mineral density of the lumbar spine is 1.071 g/cm2, corresponding to a T-score of -0.8, and a Z-score of 0.7. This is indicative of normal bone mineral density. This represents a BMD change of -2.6% compared to the prior exam. This is statistically significant. The bone mineral density of the left total hip is 0.948 g/cm2, corresponding to a T-score of -0.5, and a Z-score of 1.3. This is indicative of normal bone mineral density. This represents a BMD change of 4.8% compared to the prior exam. This is statistically significant. The bone mineral density of the left femoral neck is 0.865 g/cm2, corresponding to a T-score of -1.2, and a Z-score of 0.7. This is indicative of osteopenia. This represents a BMD change of 5.9% compared to the prior exam. FRACTURE RISK: The FRAX index suggests a ten year probability of major osteoporotic fracture of 12.2%, and of hip fracture 2.5%. MM/XR DEXA axial skeleton IMPRESSION: Based on bone mineral density, and according to World Health Organization (WHO) criteria, the diagnosis is consistent with osteopenia. Statistically, 68% of repeat scans fall within 1 SD (+/- 0.010 g/cm2 for AP spine L1-L4) and 1 SD (+/- 0.012 g/cm2 for femur total) FRAX is a trademark of the [employer]'s [employer] Met[employer], a World Health Organization (WHO) Collaborating Center. Electronically signed by: Deandre Little MD 02/16/2025 12:29 PM [facility]
--- OUTSIDE RECORDS SUMMARY | 2025-02-16 14:40 | XMS_ITS | Patient Health Record ---
Author Organization [facility] Address [address] [place] [address] Care Team Providers Care Station Installation Supervisor Name Role Phone Po Cynthia HALL Primary Care Provider Deandre Sanches [phone] Allergies Allergen (clinical drug ingredient) Drug/Non Drug Allergy documented on EMR Reaction Allergy Type Onset Date Status tree nuts (uncoded) Unknown Allergy Active Penicillin Unknown Drug Allergy Active Reason For Referral No Information Medications Medication SIG (Take, Route, Frequency, Duration) Notes Start Date End Date Status Vitamin D3 Adult Gummies 25 MCG (1000 UT) Tablet Chewable 1 tablet Orally Once a day; Duration: 30 day(s) Active Multivitamin - Tablet 1 tablet Orally On ce a day; Duration: 30 day(s) Active Immunizations Vaccine Route Administration Date Status Comme nts Influenza Unknown 03/23/2021 Administered Social History Tobacco Use: Social History Observation Description Date Details (start date - stop date) Never Smoker NA - NA Social History Drugs/Alcohol: Social Info Question Answer Notes Alcohol Screen Did you have a drink containing alcohol in the past year? Yes How often did you have a drink containing alcohol in the past year? Monthly or less (1 point) How many drinks did you have on a typical day when you were drinking in the past year? 1 or 2 drinks (0 point) How often did you have 6 or more drinks on one occasion in the past year? 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 alcohol Nonsmoker; no sig. alcohol Problems Problem Type SNOMED Code ICD Code Onset Dates Problem Status W/U Status Risk Notes Problem Screening for malignant neoplasm of colon (974723093) Encounter for screening for malignant neoplasm of colon (Z12.11) Active confirmed Problem Preprocedural examination (123496438893751) Preprocedural examination (Z01.818) Active confirmed Problem Diverticulosis of colon (332631503) Diverticulosis of colon (K57.30) Active confirmed Problem Long-term current use of antibiotic (491754052) Need for prophylactic antibiotic (Z79.2) Active confirmed Plan Of Treatment Future Test Test Name Order Date COLONOSCOPY 07/27/2016 COLONOSCOPY 03/23/2021 Insurance Providers Payer Name Payer Address Payer Phone Subscriber Number Group Number Insured Name Patient Relationship to Insured Coverage Start Date Coverage End Date MEDICARE OF [place] [address] [place] [address] [id number] AISHA DÍAZ Self - patient is the insured [facility] [address] [place], [place] [id number] AISHA DÍAZ Self - patient is the insured Medical (General) History Medical History History ICD Code Denies [place],DM,CVA,Lung disease,renal dise ase Negative screening colonosco py in 2005 except for some sigmoid diverticulosis and internal hemorrhoids Osteoporosis Surgical History Surgery Date(Month/Year) Bladder prolapse--Dr. Duran, then a 2nd one with Dr. Palacios 2015 Broken arm surgery--screws 1989' Right inguinal hernia repair-Dr. Angelo soliman Right knee replacement in 05/2020-Dr. Sandhya moreno
--- OUTSIDE RECORDS SUMMARY | 2025-02-16 14:40 | XMS_ITS | Clinical Summary ---
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 6.7 g 05/01/2023 Active Active Problems No known active problems Immunizations Immunization Administration Dates Next Due Influenza High-Dose Quadrivalent Preservative Fr ee IM 12/12/2021,02/01/2020 Influenza Quadrivalent Adjuvanted Preservative F ree IM 03/23/2021 Influenza Quadrivalent Preservative Free IM 06/2023 Zoster recombinant 03/23/2021 Social History Tobacco Use Types Packs/Day Years Used Date Smoking Tobacco: Never Smokeless Tobacco: Never Tobacco Cessation:Counseling Given: Not Answered Education Answer Date Recorded Are you interested in more education? Not on cheryl e 06/15/2022 Are you concerned about learning? Not on file 06/15/2022 No 06/15/2022 No 06/15/2022 Digital Access Answer Date Recorded No 07/14/2022 No 07/14/2022 Reliable internet access at home? Not on file 07/14/2022 Device with a working camera? Not on file Comments Unknown Sex and Gender Information Value Date Recorded Sex Assigned at Not on file Legal Sex Female 1:21 PM EDT Gender Identity Not on file Sexual Orientation Not on file Last Filed Vital Signs Vital Sign Reading Time Taken Comments Blood Pressure 139/81 05/01/2023 11:31 AM EDT Pulse 74 05/01/2023 11:31 AM EDT Temperature 36.8 C (98.2 F) 05/01/2023 11:31 AM EDT Respiratory Rate 18 05/01/2023 11:31 AM EDT Oxygen Saturation 97% 05/01/2023 11:31 AM EDT Inhaled Oxygen Concentration - - Weight 74.8 kg (165 lb) 04/26/2023 9:40 AM EST Height 160 cm (5' 3 ) 04/26/2023 9:40 AM EST Body Mass Index 29.23 04/26/2023 9:40 AM EST Plan of Treatment Health Maintenance Due Date Last Done Comments Adult Td,Tdap Booster 1945 LIPID PANEL 1945 DEPRESSION SCREENING 1957 HEPATITIS C SCREENING 08/02/1963 PNEUMOCOCCAL VACCINES (50+ years) (1 of 1 - PCV) 08/02/1995 OSTEOPOROSIS SCREENING INITIAL (ONE-TIME) 2010 RSV VACCINE (1 - 1-dose 75+ series) 2020 ZOSTER VACCINES (2 of 2) 05/18/2021 03/23/2021 INFLUENZA VACCINE (#1) 2024 , 12/12/2021, 03/23/2021, Additional history exists COVID-19 VACCINE ( - 2024- season) 2024 07/15/2021, 04/11/2020, 03/21/2020 SMOKING STATUS SCREENING (Once After 26 Yrs) Completed 05/01/2023 HEPATITIS A VACCINES Aged Out No long er eligible based on patient's age to complete this topic HIB VACCINES Aged Out No longer eligi ble based on patient's age to complete this topic MENINGOCOCCAL VACCINES (ACWY) Aged Out No longer eligible based on patient's age to complete this topic MENINGOCOCCAL VACCINES (B) Aged Out N o longer eligible based on patient's age to complete this topic Medical Devices Not on file Insurance MEDICARE PART A & B [place] MEDICARE PART A & B [place] MEDICARE PART A & B [employer] Plastics MEDICARE PART A & B ECO[employer] Plastics MEDICARE PART A & B [place] MEDICARE PART A & B [place] MEDICARE PART A & B [place] MEDICARE PART A & B [place] MEDICARE PART A & B RUST Care Teams Die Finisher Relationship Specialty Start Date End Date Cynthia James MD [address] [place] [id number] PCP - General Internal Medicine 01/10/21 Additional Source Comments The information contained in this document represents components of the legal health record. It is not the complete legal health record.[facility]
== END 2025-02-16 10:51 | disposition home or self-care (01) ==
LOC: HO.MAMMO 10:50
PROVIDERS: PCP Internal Medicine; Visit Provider Internal Medicine
DX: Z12.31 Encounter for screening mammogram for malignant neoplasm of breast (principal); M81.0 Age-related osteoporosis without current pathological fracture; M85.89 Other specified disorders of bone density and structure, multiple sites
CPT/HCPCS: 77063; 77067; 77080

== ENCOUNTER → 2025-02-16 11:30 | Outpatient (BNV) | payer MEDICARE, BC, SELFPAY | PROVIDERS: PCP Internal Medicine; Visit Provider Radiology Diagnostic Radiology | DX: E28.39 Other primary ovarian failure (principal) | CPT/HCPCS: 77080 ==